=== PATIENT | male | born 1930 | race Caucasian/White ===

== ENCOUNTER → 2016-03-09 | Outpatient (CLI) | payer MEDICARE, OTHER | END | disposition home or self-care (01) | LOC: XY 08:56 | DX: L03.032 Cellulitis of left toe (principal); M79.662 Pain in left lower leg | CPT/HCPCS: 93925 ==

== ENCOUNTER 2016-04-06 09:03 | Emergency (ER) | payer MEDICARE, MEDICAID ==
[~2016-04-06] VITALS: Ht 172.7 cm; Wt 72.6 kg
[2016-04-06 10:01] VITALS: BP 130/76
== END 2016-04-06 10:18 | disposition home or self-care (01) ==
LOC: EDUNIT# 09:03 → ER 09:09
DX: G89.29 Other chronic pain (principal); M79.605 Pain in left leg; E11.42 Type 2 diabetes mellitus with diabetic polyneuropathy; I25.2 Old myocardial infarction; M10.9 Gout, unspecified

== ENCOUNTER 2016-04-19 02:21 | Emergency (ER) | payer MEDICARE, MEDICAID ==
[~2016-04-19] VITALS: Ht 172.7 cm; Wt 72.6 kg
[2016-04-19 08:36] VITALS: BP 136/78
== END 2016-04-19 09:09 | disposition home or self-care (01) ==
LOC: EDBD 02:21 → ER 02:25
DX: E11.40 Type 2 diabetes mellitus with diabetic neuropathy, unspecified (principal); G89.29 Other chronic pain; I25.2 Old myocardial infarction; M10.9 Gout, unspecified